=== PATIENT | male | born 1975 | race Caucasian/White ===

== ENCOUNTER 2017-05-05 02:14 | Emergency (ER) | payer MEDICAID ==
[~2017-05-05] VITALS: Ht 188 cm; Wt 84.5 kg
[2017-05-05 02:22] VITALS: BP 146/94
== END 2017-05-05 03:32 | disposition left against medical advice (07) ==
LOC: ED 03:26
DX: S01.91XA Laceration without foreign body of unspecified part of head, initial encounter (principal); W18.30XA Fall on same level, unspecified, initial encounter; Y93.89 Activity, other specified; Y99.8 Other external cause status; Y92.89 Other specified places as the place of occurrence of the external cause

== ENCOUNTER 2017-05-06 11:02 | Emergency (ER) | payer MEDICAID ==
[~2017-05-06] VITALS: Ht 185.4 cm; Wt 84.7 kg
[2017-05-06 11:03] VITALS: BP 118/71
[2017-05-06] MEDS ORDERED: OXYcodone/APAP 5/325MG TABLET PO ONE (11:30)
[2017-05-06] MEDS ORDERED: OXYcodone/APAP 5/325MG TABLET ONE (11:30)
== END 2017-05-06 12:55 | disposition home or self-care (01) ==
LOC: ED 11:47
DX: S40.012A Contusion of left shoulder, initial encounter (principal); S00.81XA Abrasion of other part of head, initial encounter; F17.210 Nicotine dependence, cigarettes, uncomplicated; W01.0XXA Fall on same level from slipping, tripping and stumbling without subsequent striking against object, initial encounter; Y93.01 Activity, walking, marching and hiking; Y99.8 Other external cause status; Y92.89 Other specified places as the place of occurrence of the external cause
CPT/HCPCS: 99284

== ENCOUNTER 2017-12-25 18:10 | Emergency (ER) | payer MEDICAID ==
[~2017-12-25] VITALS: Ht 188 cm; Wt 88.3 kg
[2017-12-25 19:07] LABS: BASOPHILS # (AUTO) 0.05 x10^3/uL (0-0.1); BASOPHILS % (AUTO) 1 % (0-1); EOSINOPHILS # (AUTO) 0.26 x10^3/uL (0-0.4); EOSINOPHILS % (AUTO) 3 % (1-7); LYMPHOCYTES % (AUTO) 19 % (22-44); MD NO; MEAN CORPUSCULAR HEMOGLOBIN 31.2 pg (27.5-34.5); MEAN CORPUSCULAR HGB CONC 33.9 g/dL (33.2-36.2); MEAN CORPUSCULAR VOLUME 91.9 fL (81-97); MONOCYTES # (AUTO) 0.69 x10^3/uL (0.2-0.8); MONOCYTES % (AUTO) 9 % (2-9); NEUTROPHILS # (AUTO) 5.35 x10^3/uL (1.8-6.8); NEUTROPHILS % (AUTO) 68 % (42-75); PLATELET COUNT 383 x10^3/uL (130-400); RED BLOOD COUNT 4.68 x10^6/uL (4.38-5.82); RED CELL DISTRIBUTION WIDTH 12.5 % (9.4-14.8)
[2017-12-25 19:16] LABS: INTERNATIONAL NORMALIZED RATIO 0.93 (0.93-1.1); PROTHROMBIN TIME 9.7 Seconds (9.6-11.5)
[2017-12-25 19:19] LABS: ALANINE AMINOTRANSFERASE 58 U/L (12-78); ALBUMIN 3.6 g/dL (3.4-5.0); ANION GAP 7 mmol/L (5-15); CALCIUM 8.8 mg/dL (8.5-10.1); CHLORIDE 103 mmol/L (98-107); CREATININE 0.89 mg/dL (0.7-1.3)
[2017-12-25 19:22] LABS: ALKALINE PHOSPHATASE 73 U/L (45-117); BILIRUBIN,TOTAL 0.3 mg/dL (0.2-1.0); TOTAL PROTEIN 7.8 g/dL (6.4-8.2)
[2017-12-25 20:39] VITALS: BP 132/93
== END 2017-12-25 21:14 | disposition home or self-care (01) ==
LOC: ED 21:08
DX: G54.9 Nerve root and plexus disorder, unspecified (principal); G58.8 Other specified mononeuropathies; F17.210 Nicotine dependence, cigarettes, uncomplicated; M54.12 Radiculopathy, cervical region; R79.1 Abnormal coagulation profile; Z79.899 Other long term (current) drug therapy
CPT/HCPCS: 36415; 70450; 80053; 80307; 85025; 85610; 85730; 93005; 99285

== ENCOUNTER 2021-05-10 17:53 | Emergency (ER) | payer MEDICAID ==
--- NOTE | 2021-05-10 18:44 | NUR ---
NIL X 1
--- NOTE | 2021-05-10 18:58 | NUR ---
NIL X 2
--- NOTE | 2021-05-10 19:15 | NUR ---
NIL X 3
== END 2021-05-10 19:16 | disposition left against medical advice (07) ==
LOC: ED 18:00
DX: R68.89 Other general symptoms and signs (principal); Z53.21 Procedure and treatment not carried out due to patient leaving prior to being seen by health care provider